=== PATIENT | female | born 1990 | race Caucasian/White ===

== ENCOUNTER 2017-11-17 11:58 | Outpatient (CLI) | END 2017-11-17 14:15 | disposition home or self-care (01) ==

== ENCOUNTER 2017-11-20 10:23 | Outpatient (CLI) | END 2017-11-20 12:14 | disposition home or self-care (01) ==

== ENCOUNTER 2017-11-23 11:00 | Inpatient (IN) | END 2017-11-26 15:05 | disposition home or self-care (01) | DRG 766 ==